=== PATIENT | female | born 1970 | race Caucasian/White ===

== ENCOUNTER 2017-08-06 09:52 | Emergency (ER) | payer MEDICAID ==
[~2017-08-06] VITALS: Ht 167.6 cm; Wt 59.0 kg
[2017-08-06 10:03] VITALS: BP 113/72
[2017-08-06] MEDS ORDERED: IBUPROFEN 200 MG TABLET ONE (10:44)
[2017-08-06] MEDS ORDERED: LEVO125T5 PO (10:50)
[2017-08-06] MEDS ORDERED: IBUPROFEN 200 MG TABLET PO ONE (11:00)
[2017-08-06 11:05] LABS: HEMATOCRIT 40.5 % (34.6-47.8); HEMOGLOBIN 13.7 g/dL (11.7-16.4); WHITE BLOOD COUNT 7.3 x10^3/uL (3.4-10)
[2017-08-06 11:16] LABS: BLOOD UREA NITROGEN 13 mg/dL (7-18)
[2017-08-06 11:21] LABS: IS PT STATUS REG ER OR PRE ER? YES
== END 2017-08-06 11:42 | disposition home or self-care (01) ==
LOC: ED 11:36
DX: R07.2 Precordial pain (principal); F41.1 Generalized anxiety disorder
CPT/HCPCS: 36415; 71010; 80048; 82040; 83880; 84484; 85025; 93005; 99285

== ENCOUNTER 2018-03-21 13:32 | Emergency (ER) | payer MEDICAID ==
[~2018-03-21] VITALS: Ht 167.6 cm; Wt 54.5 kg
[~2018-03-21 13:32] MED LIST: LEVO125T5 PO
[2018-03-21] MEDS ORDERED: DIAZ5TAB PO (14:27)
[2018-03-21] MEDS ORDERED: METO25TA35 PO (14:27)
[2018-03-21] MEDS ORDERED: ASPIRIN 81 MG TABLET CHEW PO ONE (14:30)
[2018-03-21] MEDS ORDERED: ASPIRIN 81 MG TABLET CHEW ONE (14:35)
[2018-03-21 15:01] LABS: BASOPHILS # (AUTO) 0.09 x10^3/uL (0-0.1); BASOPHILS % (AUTO) 1 % (0-1); EOSINOPHILS # (AUTO) 0.48 x10^3/uL (0-0.4); EOSINOPHILS % (AUTO) 7 % (1-7); LYMPHOCYTES # (AUTO) 1.62 x10^3/uL (1-3.4); LYMPHOCYTES % (AUTO) 25 % (22-44); MD NO; MEAN CORPUSCULAR HEMOGLOBIN 31.9 pg (27.0-34.8); MEAN CORPUSCULAR HGB CONC 33.3 g/dL (32.4-35.8); MEAN CORPUSCULAR VOLUME 95.7 fL (80-100); MEAN PLATELET VOLUME 7.5 fL (7.4-10.4); MONOCYTES # (AUTO) 0.43 x10^3/uL (0.2-0.8); MONOCYTES % (AUTO) 7 % (2-9); NEUTROPHILS % (AUTO) 60 % (42-75); PLATELET COUNT 242 x10^3/uL (130-400); RED BLOOD COUNT 4.16 x10^6/uL (3.82-5.3); RED CELL DISTRIBUTION WIDTH 13.8 % (9.6-15.2)
[2018-03-21 15:10] LABS: ALBUMIN 3.8 g/dL (3.4-5.0); ANION GAP 7 mmol/L (5-15); CALCIUM 8.7 mg/dL (8.5-10.1); CHLORIDE 106 mmol/L (98-107); CREATININE 0.89 mg/dL (0.55-1.02)
[2018-03-21 15:14] LABS: T4 (THYROXINE) 10.4 mcg/dL (4.8-13.9); TROPONIN I < 0.015 ng/mL (0.000-0.045)
[2018-03-21 15:20] LABS: THYROID STIMULATING HORMONE 0.833 mIU/L (0.358-3.740)
[2018-03-21 16:33] VITALS: BP 108/69
== END 2018-03-21 17:27 | disposition home or self-care (01) ==
LOC: ED 16:04
DX: R07.89 Other chest pain (principal); F41.9 Anxiety disorder, unspecified
CPT/HCPCS: 36415; 71045; 80048; 82040; 84436; 84443; 84484; 85025; 93005; 99285

== ENCOUNTER 2020-07-13 08:42 | Emergency (ER) | payer MEDICAID ==
[~2020-07-13] VITALS: Ht 167.6 cm; Wt 60.4 kg
[~2020-07-13 08:42] MED LIST changes: +DIAZ5TAB PO; +METO25TA35 PO
--- NOTE | 2020-07-13 09:31 | NUR ---
TASK RN: STRAIGHT CATH PERFORMED AND URINE SAMPLE WALKED TO LAB
--- NOTE | 2020-07-13 09:32 | NUR ---
UNABLE TO URINATE. BILAT FLANK PAIN. ONSET THIS AM, ALSO LEFT BIG TOE NAIL COMING OFF AFTER HITTING IT TODAY
[2020-07-13 09:40] LABS: MICROSCOPIC AUTO
[2020-07-13 09:50] LABS: BASOPHILS # (AUTO) 0.02 x10^3/uL (0-0.1); BASOPHILS % (AUTO) 0 % (0-1); EOSINOPHILS # (AUTO) 0.08 x10^3/uL (0-0.4); EOSINOPHILS % (AUTO) 1 % (1-7); LYMPHOCYTES # (AUTO) 1.97 x10^3/uL (1-3.4); LYMPHOCYTES % (AUTO) 22 % (22-44); MD NO; MEAN CORPUSCULAR HEMOGLOBIN 32.4 pg (27.0-34.8); MEAN CORPUSCULAR HGB CONC 32.6 g/dL (32.4-35.8); MEAN CORPUSCULAR VOLUME 99.4 fL (80-100); MEAN PLATELET VOLUME 7.4 fL (7.4-10.4); MONOCYTES # (AUTO) 0.67 x10^3/uL (0.2-0.8); MONOCYTES % (AUTO) 7 % (2-9); NEUTROPHILS # (AUTO) 6.31 x10^3/uL (1.8-6.8); NEUTROPHILS % (AUTO) 70 % (42-75); PLATELET COUNT 272 x10^3/uL (130-400); RED BLOOD COUNT 4.38 x10^6/uL (3.82-5.3); RED CELL DISTRIBUTION WIDTH 13.9 % (9.6-15.2)
[2020-07-13 09:53] LABS: ALBUMIN 3.6 g/dL (3.4-5.0); ANION GAP 6 mmol/L (5-15); CALCIUM 8.9 mg/dL (8.5-10.1); CHLORIDE 104 mmol/L (98-107); CREATININE 0.79 mg/dL (0.55-1.02)
--- NOTE | 2020-07-13 09:56 | NUR ---
PT REPORT FROM SAMUEL KEVIN. PT CARE TO BE ASSUMED.
[2020-07-13] MEDS ORDERED: LIOT5TAB11 PO (10:13)
[2020-07-13] MEDS ORDERED: IBUP-1223 PO (10:13)
[2020-07-13 10:21] VITALS: BP 120/75
== END 2020-07-13 10:23 | disposition home or self-care (01) ==
LOC: ED 09:43
DX: N30.01 Acute cystitis with hematuria (principal); R30.0 Dysuria
CPT/HCPCS: 36415; 80048; 81001; 82040; 85025; 87077; 87086; 87186; 99284

== ENCOUNTER 2021-04-19 13:50 | Emergency (ER) | payer MEDICAID ==
[~2021-04-19] VITALS: Ht 167.6 cm; Wt 52.3 kg
[~2021-04-19 13:50] MED LIST changes: +IBUP-1223 PO; +LIOT5TAB11 PO
--- NOTE | 2021-04-19 14:45 | NUR ---
EKG DONE IN TRIAGE. ER PA WAS IN TO SEE PT.
--- NOTE | 2021-04-19 15:09 | NUR ---
NO ANSWER IN LOBBY
[2021-04-19 15:54] LABS: BASOPHILS % (AUTO) 1 % (0-1); EOSINOPHILS % (AUTO) 9 % (1-7); LYMPHOCYTES % (AUTO) 27 % (22-44); MEAN CORPUSCULAR HEMOGLOBIN 33.4 pg (27.0-34.8); MEAN CORPUSCULAR HGB CONC 34.8 g/dL (32.4-35.8); MEAN PLATELET VOLUME 7.2 fL (7.4-10.4); MONOCYTES % (AUTO) 10 % (2-9); NEUTROPHILS % (AUTO) 54 % (42-75); PLATELET COUNT 277 x10^3/uL (130-400); RED BLOOD COUNT 4.67 x10^6/uL (3.82-5.3); RED CELL DISTRIBUTION WIDTH 12.4 % (9.6-15.2)
[2021-04-19 15:57] LABS: MD NO
[2021-04-19 16:06] LABS: ANION GAP 5 mmol/L (5-15); CALCIUM 9.5 mg/dL (8.5-10.1); CHLORIDE 106 mmol/L (98-107)
[2021-04-19 16:07] LABS: CREATININE 0.81 mg/dL (0.55-1.02)
[2021-04-19] MEDS ORDERED: ACETAMINOPHEN 325 MG TABLET PO ONE (16:30)
[2021-04-19] MEDS ORDERED: ACETAMINOPHEN 325 MG TABLET ONE (16:33)
[2021-04-19 16:36] VITALS: BP 112/77
== END 2021-04-19 16:52 | disposition home or self-care (01) ==
LOC: ED 16:50
DX: J18.1 Lobar pneumonia, unspecified organism (principal); R07.89 Other chest pain; M79.661 Pain in right lower leg; M79.662 Pain in left lower leg
CPT/HCPCS: 36415; 71045; 80048; 82040; 85025; 85379; 93005; 93970; 99285